=== PATIENT | female | born 2000 | race Caucasian/White ===

== ENCOUNTER 2023-07-02 20:51 | Emergency (ER) | payer OTHER ==
[~2023-07-02] VITALS: Ht 154.9 cm; Wt 54.4 kg
[2023-07-02 21:18] VITALS: BP 113/65; PULSE 76; RESP 16; TEMP 99.2; O2SAT 99
== END 2023-07-02 23:10 | disposition left against medical advice (07) ==
LOC: MED 20:51
DX: M79.662 Pain in left lower leg (principal); R53.1 Weakness; Z53.21 Procedure and treatment not carried out due to patient leaving prior to being seen by health care provider
CPT/HCPCS: 99281